=== PATIENT | male | born 1960 | race Hispanic/Latino ===

== ENCOUNTER 2018-06-28 16:12 | Emergency (ER) | payer OTHER ==
[~2018-06-28] VITALS: Ht 170.2 cm; Wt 66.2 kg
[~2018-06-28 16:12] MED LIST: ATORVASTATIN CA20 MG PO; JANUVIA100 MG PO; LISINOPRIL10 MG PO; MELOXICAM7.5 MG PO; METFORMIN HCL500 MG PO
[2018-06-28 17:27] VITALS: BP 97/62
== END 2018-06-28 17:30 | disposition home or self-care (01) ==
LOC: ER 16:12
DX: I95.9 Hypotension, unspecified (principal)
CPT/HCPCS: 99282

== ENCOUNTER 2018-09-26 14:39 | Observation (INO) | payer OTHER ==
[~2018-09-26] VITALS: Ht 170.2 cm; Wt 66.2 kg
[2018-09-26] MEDS ORDERED: SODIUM CHLORIDE 0.9% 1000ML 1,000 ML IV ONE (15:00)
--- NOTE | 2018-09-26 15:41 | Diagnostic Imaging Report ---
Chest, 1 view, 09/26/2018. History: Dizziness. Comparison: None available. Findings: The cardiomediastinal silhouette and pulmonary vasculature are within normal limits for a portable exam. There is no focal consolidation or pleural effusion. Multiple old left rib fractures are present. There are no acute osseous or soft tissue abnormalities. Impression: No acute cardiopulmonary abnormality. Signed by: Raj Jane on 09/26/2018 3:38 PM
[2018-09-26 16:21] LABS: BASOPHILS % 0.3 % (0.0-1.0); EOSINOPHILS # (AUTO) 0.1 (0.0-0.4); EOSINOPHILS % 1.1 % (0.0-6.0); HEMATOCRIT 31.1 % (38.2-49.6); HEMOGLOBIN 10.6 g/dL (14.0-18.0); LYMPHOCYTES # (AUTO) 1.1 (1.0-3.2); LYMPHOCYTES % 12.7 % (18.0-39.1); MEAN CORPUSCULAR HEMOGLOBIN 31.1 pg (28-32); MEAN CORPUSCULAR HGB CONC 34.1 g/dL (31-35); MEAN CORPUSCULAR VOLUME 91.2 fL (81-99); MONOCYTES % 11.9 % (4.4-11.3); NEUTROPHILS # (AUTO) 6.4 (2.1-6.9); NEUTROPHILS % 73.7 % (38.7-80.0); PLATELET COUNT 201 x10e3/uL (140-360); RED BLOOD COUNT 3.41 x10e6/uL (4.3-5.7); RED CELL DISTRIBUTION WIDTH 12.7 % (11.7-14.4)
[2018-09-26 16:39] LABS: ALANINE AMINOTRANSFERASE 23 IU/L (0-55); ALBUMIN 3.9 g/dL (3.5-5.0); ALBUMIN/GLOBULIN RATIO 1.4 (0.8-2.0); ALKALINE PHOSPHATASE 99 IU/L (40-150); ANION GAP 16.6 mmol/L (8-16); BLOOD UREA NITROGEN 67 mg/dL (7-26); BUN/CREATININE RATIO 29 (6-25); CALCIUM 9.2 mg/dL (8.4-10.2); CARBON DIOXIDE 24 mmol/L (22-29); CHLORIDE 102 mmol/L (98-107); CREATINE KINASE 133 IU/L (30-200); EST GLOMERULAR FILTRATION RATE 29 ML/MIN (60-); GLUCOSE 271 mg/dL (74-118); POTASSIUM 4.6 mmol/L (3.5-5.1); SODIUM 138 mmol/L (136-145)
[2018-09-26] MEDS ORDERED: ACETAMINOPHEN 325 MG TAB ONE (17:15)
[2018-09-26] MEDS ORDERED: ONDANSETRON HCL INJ 2MG/ML 2ML 2 MG/ML VIAL IV PRN (17:15)
[2018-09-26] MEDS ORDERED: ACETAMINOPHEN 325 MG TAB PO ONE (17:15)
--- OUTSIDE RECORDS SUMMARY | 2018-09-26 18:05 | XMS REPORT ---
[email or web address] Address Unknown Phone Unavailable Care Team Providers Care Creel Operator Name Role Phone Cornelius RIVERA Unavailable Unavailable Problems This patient has no known problems. Allergies, Adverse Reactions, Alerts This patient has no known allergies or adverse reactions. Medications This patient has no known medications. Results Test Description Test Time Test Comments Text Results Atomic Results Result Comments CHEST SINGLE (PORTABLE) 2018-09-26 15:37:00 [place] [address] Patient Name: BROOKE GALLEGO MR #: [id number] : 1960 Age/Sex: 58/M Req #: [id number] Adm Physician: Ordered by: NATHALY RIVERA MD Report #: [id number] Location: ER Room/Bed: Procedure: [id number] DX/CHEST SINGLE (PORTABLE) Exam Date: 09/26/18 Exam Time: 1453 REPORT STATUS: Signed Chest, 1 view, 09/26/2018. History: Jarett tobar. Comparison: None available. Findings: The cardiomediastinal silhouette and pulmonary vasculature are within normal limits for a portable exam. There is no focal consolidation or pleural effusion. Multiple old left rib fractures are present. There are no acute osseous or soft tissue abnormalities. Impression: No acute cardiopulmonary abnormality. Signed by: Raj Jane on 09/26/2018 3:38 PM Dictated By: RAJ JANE MD [id number] Transcribed By: LORRIE on 09/26/18 153 COPY TO: NATAHLY RIVERA MD
[2018-09-26 19:02] LABS: BILIRUBIN,URINE NEGATIVE (NEGATIVE); CLARITY,URINE SL CLOUDY (CLEAR); COLOR,URINE YELLOW (YELLOW); KETONES,URINE NEGATIVE (NEGATIVE); LEUKOCYTE ESTERASE ,URINE NEGATIVE (NEGATIVE); NITRITE,URINE NEGATIVE (NEGATIVE); PROTEIN,URINE DIPSTICK NEGATIVE (NEGATIVE); URINE UROBILINOGEN 0.2 mg/dL (0.2 - 1)
[2018-09-26 19:06] LABS: AMPHETAMINES SCREEN,URINE NEGATIVE (NEGATIVE); BENZODIAZEPINES SCREEN,URINE NEGATIVE (NEGATIVE); PHENCYCLIDINE SCREEN,URINE NEGATIVE (NEGATIVE)
[2018-09-26 19:15] LABS: AMORPHOUS SEDIMENT,URINE MODERATE (FEW); BACTERIA,URINE FEW /HPF; EPITHELIAL CELLS,URINE RARE /LPF; HYALINE CASTS 0-1 (0-1); WBC,URINE (MAN) 0-5 /HPF (0-5)
--- NOTE | 2018-09-26 19:36 | NUR ---
PT ARRIVED TO UNIT VIA STRETCHER AT THIS TIME. PT ORIENTED TO ROOM AND CALL LIGHT. PT IS IN BED RESTING COMFORTABLY IN NO DISTRESS NOTED. BED IS IN LOW LOCKED POSITION AND CALL LIGHT IS IN REACH. WILL CONTINUE TO MONITOR.
[2018-09-26 20:13] VITALS: BP 126/64
[2018-09-26 20:28] VITALS: BP 126/64
[2018-09-26] MEDS: SODIUM CHLORIDE 0.9% 1000ML 1,000 ML IV SCH (21:53)
--- NOTE | 2018-09-26 22:12 | NUR ---
Pt c/o headache at this time. Dr. Bustos called for medication orders. Awaiting call back.
[2018-09-26 22:23] VITALS: BP 126/64
[2018-09-26] MEDS: TRAMADOL HCL 50 MG TAB PO PRN (22:40)
[2018-09-27 00:34] VITALS: BP 106/59
--- NOTE | 2018-09-27 01:12 | NUR ---
Rounds made. Pt states headache is gone. Blood drawn for cardiac markers without complication. Pt resting comfortably in bed. Call light is in reach. Will continue to monitor.
[2018-09-27 01:21] LABS: CREATINE KINASE 98 IU/L (30-200)
[2018-09-27 05:22] VITALS: BP 128/74
[2018-09-27] MEDS: TRAMADOL HCL 50 MG TAB PO PRN (05:22)
[2018-09-27 05:57] LABS: BASOPHILS % 0.4 % (0.0-1.0); EOSINOPHILS # (AUTO) 0.2 (0.0-0.4); EOSINOPHILS % 1.7 % (0.0-6.0); HEMATOCRIT 30.2 % (38.2-49.6); HEMOGLOBIN 10.3 g/dL (14.0-18.0); LYMPHOCYTES % 22.7 % (18.0-39.1); MEAN CORPUSCULAR HEMOGLOBIN 31.5 pg (28-32); MEAN CORPUSCULAR HGB CONC 34.1 g/dL (31-35); MEAN CORPUSCULAR VOLUME 92.4 fL (81-99); MONOCYTES # (AUTO) 1.1 (0.2-0.8); MONOCYTES % 11.7 % (4.4-11.3); NEUTROPHILS # (AUTO) 5.7 (2.1-6.9); NEUTROPHILS % 63.1 % (38.7-80.0); PLATELET COUNT 186 x10e3/uL (140-360); RED BLOOD COUNT 3.27 x10e6/uL (4.3-5.7); RED CELL DISTRIBUTION WIDTH 12.6 % (11.7-14.4)
[2018-09-27] MEDS: SODIUM CHLORIDE 0.9% 1000ML 1,000 ML IV SCH ×3 (05:58→16:10)
[2018-09-27 06:10] LABS: ANION GAP 10.4 mmol/L (8-16); CALCIUM 8.3 mg/dL (8.4-10.2); CREATININE, SERUM 1.44 mg/dL (0.72-1.25); POTASSIUM 4.4 mmol/L (3.5-5.1)
[2018-09-27 07:30] VITALS: BP 122/58
--- NOTE | 2018-09-27 07:42 | Diagnostic Imaging Report ---
EXAMINATION: CHEST SINGLE (PORTABLE) INDICATION: DIZZINESS/DEHYDRATION COMPARISON: Chest radiograph 09/26/2018 FINDINGS: AP view TUBES and LINES: None. LUNGS: Lungs are well inflated. Lungs are clear. There is no evidence of pneumonia or pulmonary edema. PLEURA: No pleural effusion or pneumothorax. HEART AND MEDIASTINUM: The cardiomediastinal silhouette is unremarkable. BONES AND SOFT TISSUES: No acute osseous lesion. Soft tissues are unremarkable. Multiple healed left rib fractures. UPPER ABDOMEN: No free air under the diaphragm. IMPRESSION: No acute thoracic abnormality. Signed by: Leroy Spencer DO on 09/27/2018 7:39 AM
[2018-09-27] MEDS ORDERED: ATORVASTATIN 20 MG TAB PO SCH ×2 (09:00→21:00)
[2018-09-27] MEDS ORDERED: SITAGLIPTIN 100 MG TAB PO SCH (09:00)
[2018-09-27 09:56] LABS: CREATINE KINASE 94 IU/L (30-200)
[2018-09-27 13:30] VITALS: BP 109/63
[2018-09-27 16:32] LABS: ANION GAP 10.4 mmol/L (8-16); BLOOD UREA NITROGEN 32 mg/dL (7-26); BUN/CREATININE RATIO 27 (6-25); CALCIUM 8.8 mg/dL (8.4-10.2); CARBON DIOXIDE 27 mmol/L (22-29); CHLORIDE 107 mmol/L (98-107); CREATININE, SERUM 1.19 mg/dL (0.72-1.25); EST GLOMERULAR FILTRATION RATE > 60 ML/MIN (60-); GLUCOSE 301 mg/dL (74-118); POTASSIUM 4.4 mmol/L (3.5-5.1); SODIUM 140 mmol/L (136-145)
[2018-09-27 17:00] VITALS: BP 166/77
--- NOTE | 2018-10-16 01:50 | Discharge Summary ---
DISCHARGE DIAGNOSES: 1. Acute renal failure. 2. Dehydration. HISTORY OF PRESENT ILLNESS AND HOSPITAL COURSE: See hospital chart for full details. The patient is a gentleman, who had been working outside in the heat and got significantly dehydrated, came in with acute renal failure, so he was brought in and placed on IV fluids, where he had significant improvement in his overall kidney function. . At the time of discharge, he was feeling great, wanted to go home. He will follow up with his PCP in 1 to 2 weeks. MD FAUZIA Scott/MODSena /[id number]
== END 2018-09-27 18:05 | disposition home or self-care (01) ==
LOC: ER 14:52 → ERHOLD 18:03 → IMCU 19:53
PROVIDERS: ADMIT Internal Medicine; ATTEND Internal Medicine
DX: T67.5XXA Heat exhaustion, unspecified, initial encounter (principal); N17.9 Acute kidney failure, unspecified; E86.0 Dehydration; D64.9 Anemia, unspecified; E11.9 Type 2 diabetes mellitus without complications; Z79.4 Long term (current) use of insulin
CPT/HCPCS: 36415 ×2; 71045 ×2; 80048; 80053; 80307; 81001; 82550 ×2; 82553 ×2; 84443; 84484 ×2; 85025 ×2; 93005 ×2; 99284; G0378 ×2; J7030 ×2

== ENCOUNTER → 2020-01-15 | Day surgery (SDC) | payer OTHER ==
[~2020-01-15] MED LIST changes: +EPHEDRINE SULFATE INJ 50 MG/ML VIAL ONE; +FENTANYL CITRATE/PF 100MCG/2 ML INJ ONE; +GLIMEPIRIDE2 MG PO; +HYOSCYAMINE 0.125 MG TAB ONE; +LEVOTHYROXINE100 MC2 PO; +LIDOCAINE HCL 2% LOCAL INJ 5 ML SDV VIAL INJ ONE; +MIDAZOLAM HCL 2 MG/2 ML VIAL ONE; +PROPOFOL IV EMULSION 10 MG/ML 20 ML VIAL ONE
[2020-01-15 11:10] VITALS: BP 127/64
== END | disposition home or self-care (01) ==
LOC: OR 07:03
PROVIDERS: ATTEND Internal Medicine Gastroenterology
DX: Z09 Encounter for follow-up examination after completed treatment for conditions other than malignant neoplasm (principal); D12.3 Benign neoplasm of transverse colon; D12.5 Benign neoplasm of sigmoid colon; K57.30 Diverticulosis of large intestine without perforation or abscess without bleeding; K64.8 Other hemorrhoids; K21.9 Gastro-esophageal reflux disease without esophagitis; I10 Essential (primary) hypertension; E78.5 Hyperlipidemia, unspecified; E11.9 Type 2 diabetes mellitus without complications; E03.9 Hypothyroidism, unspecified; F17.210 Nicotine dependence, cigarettes, uncomplicated; Z01.812 Encounter for preprocedural laboratory examination; Z20.828 Contact with and (suspected) exposure to other viral communicable diseases; Z79.84 Long term (current) use of oral hypoglycemic drugs
CPT/HCPCS: 36415; 45384; 45385; 82948; J2001; J2250; J2704; J3010; U0002; 45378